=== PATIENT | male | born 1960 | race Caucasian/White ===

== ENCOUNTER 2025-04-18 09:14 | Day surgery (SDC) | payer MEDICARE, OTHER, SELFPAY ==
[2025-04-04 10:00] VITALS: BMI 28.3
[2025-04-18] VITALS (7 sets, daily range): BP systolic 89–125; BP diastolic 51–81; PULSE 63–78; RESP 14–24; TEMP 36.8–36.9; O2SAT 92–95
[2025-04-18] MEDS: ACETAMINOPHEN 325 MG TABLET 975 MG PO (10:23)
[2025-04-18] MEDS: LACTATED RINGERS 1,000 ML 42 ML IV (10:25)
--- NOTE | 2025-04-18 10:53 | PM.HP.IH.1 ---
History of Present Illness History of Present Illness Date Patient Seen: 04/18/25 Time Patient Seen: 10:54 Chief complaint: [facility] [place] Narrative: Sheldon is a 65 year old man with a symptomatic right inguinal hernia. Review of his CT scan from [facility] shows that he also has a likely left inguinal hernia and an epigastric hernia. [facility] Medical History (Updated 04/18/25 @ 10:55 by Medardo Jordan MD) Hypothyroid HLD (hyperlipidemia) Surgical History (Updated 04/04/25 @ 10:00 by Mariann Butler RN) Hx of umbilical hernia repair Social History Smoking Status: Former smoker Meds Home Medications and Allergies Home Medications ?Medication ?Instructions ?Recorded ?Confirmed ?Type acyclovir 800 mg tablet mg PO 02/27/25 03/02/25 History levothyroxine 150 mcg tablet 150 mcg PO DAILY 02/27/25 04/18/25 History rosuvastatin 5 mg tablet 5 mg PO DAILY 02/27/25 04/18/25 History Allergies Allergy/AdvReac Type Severity Reaction Status Date / Time No Known Drug Allergies Allergy Verified 04/18/25 09:58 Exam Vital Signs (past 8 hours): - 04/18/25 10:18 Temperature 98.5 F Pulse Rate 78 Respiratory Rate 16 Blood Pressure 125/81 Pulse Oximetry 93 Oxygen Delivery Method Room Air Oxygen Delivery Method Room Air Const General: healthy appearing Assessment & Plan Assessment and plan (1) Right inguinal hernia: Status: Acute (2) Ventral hernia: Qualifiers: Obstruction and gangrene presence: without obstruction or gangrene Qualified Code(s): K43.9 - Ventral hernia without obstruction or gangrene Status: Acute (3) Left inguinal hernia: Status: Acute Plan I discussed the findings of the CT scan with Sheldon. We agreed to perform a robitic right possible left inguinal hernia repair with mesh and a ventral hernia repair with mesh. Time-Based Coding :: [TOTAL MINUTES] spent with patient and on the chart (including review of chart, obtaining history, exam, reviewing outside data, placing orders, documenting exam and treatment plan, and counseling patient) on [DATE]. [employer] Sales Representative Document charge(s): No
--- NOTE | 2025-04-18 11:35 | SUR.OPER ---
Supine on padded OR bed, head on pillow, arms padded and tucked at sides, legs uncrossed, safety belt at thigh, tape over blanket over lower legs . ALL POSITIONING APPROVED AND DIRECTED BY SURGEON PRIOR TO START OF PROCEDURE.
[2025-04-18] MEDS: LACTATED RINGERS 1,000 ML 120 ML IV (13:34)
--- NOTE | 2025-04-18 14:20 | PM.OP.1 ---
Operative Date/Time/Diagnoses Date of procedure: 04/18/25 Time of procedure: 14:20 Pre-op diagnosis: Bilateral inguinal hernias, epigastric hernia Post-op diagnosis: same Procedure & Clinicians Procedure: Robotic bilateral inguinal hernia repair with mesh Epigastric hernia repair with mesh Same procedure(s) as scheduled: Yes Surgeon: Medardo Jordan Assisted?: Yes Urologist Physician: Jarod Metzger Anesthesia Type: General Operative Notes Findings: Large right indirect inguinal hernia Moderate left indirect inguinal hernia 3 cm epigastric hernia Applied: none Estimated Blood Loss (mL): 8 Procedure in detail: The patient was given preoperative antibiotics. The patient was brought to the operating room, placed on the table in the supine position with the arms tucked and general anesthesia was induced. The abdomen was prepped and draped in the usual fashion. A time-out was performed. The epigastric hernia could not easily be palpated. A 1 cm transverse incision was created superior to the umbilicus and dissection was carried down to the fascia. The fascia was scored transversely with cautery. The fascia was grasped with a Chanel clamp to elevate the abdominal wall. A Peon clamp was used to alanis the peritoneum. The 12 mm robotic port was placed and the abdomen was insufflated to 15 mmHg. The camera was inserted, there was no evidence of any injury from the entry. Next 8 mm ports were placed under direct vision in the mid left and mid right abdomen. The camera was placed through the right lateral port to look back at the 12 mm port. It became clear that the epigastric hernia was about 3 cm superior to the 12 mm port. There was a loop of transverse colon adherent to the anterior abdominal wall just superior to the 12 mm port. There was no evidence of an injury. The patient was positioned in Trendelenburg. The robot was docked. Dissection was started on the right inguinal hernia. A flap was created. The peritoneum was dissected off the right cord structures. The hernia sac was dissected out of the internal ring. Romario's ligament was exposed to the pubis at the midline. An extra-large right Bard mesh was brought in and placed over the defect with the medial edge overlapping the pubic symphysis. Next a left peritoneal flap was created. The peritoneum was dissected off the left cord structures and hernia sac was reduced. Romario's ligament was exposed. An extra-large left Bard mesh was brought in and placed over the defect with the medial edge overlapping the pubic symphysis. Each mesh was secured to Romario's ligament with a single 3-0 Vicryl stitch and the medial edges of each mesh were sutured together in the midline with a 3-0 Vicryl stitch. Finally both peritoneal flaps were closed with a running 3-0 barbed suture. The suture was removed and accounted for. The robot was undocked. The 8 mm ports were removed under direct vision. The abdomen was desufflated. The 12 mm port was removed. The skin incision was extended to allow exposure of the epigastric hernia. The hernia was approximately 4 cm x 3 cm. The fatty contents of the hernia were reduced. The fascia was closed transversely with about 6 interrupted 0 Ethibond sutures. The 12 mm defect was closed with 2 interrupted 0 Ethibond sutures in a [id number] manner. Next a piece of polypropylene mesh was trimmed to fit over the two defects and secured with fibrin glue. The skin incisions were closed with 4 Monocryl, Steri-Strips and adhesive dressings. Jarod SKAGGS provided assistance with exposure, retraction and closure of incisions. Complications: none Post-operative Condition: stable Disposition: PACU
== END 2025-04-18 15:43 | disposition home or self-care (01) ==
PROVIDERS: PCP Family Medicine; Referring Provider Surgery; Visit Provider Surgery
PROC: 0YQ54ZZ Repair Right Inguinal Region, Percutaneous Endoscopic Approach (ICD-10-PCS; CPT 49593; principal; 2025-04-18 11:15)
DX: K40.20 Bilateral inguinal hernia, without obstruction or gangrene, not specified as recurrent (principal); K43.9 Ventral hernia without obstruction or gangrene; E78.5 Hyperlipidemia, unspecified; E03.9 Hypothyroidism, unspecified; Z87.891 Personal history of nicotine dependence
CPT/HCPCS: 49593; 49505; S2900; C1781; C9250; J0689; J1100; J1171; J1885; J2405; J2704; J3010; J3490; J7120